=== PATIENT | male | born 1950 | race Hispanic/Latino ===

== ENCOUNTER 2022-05-22 07:17 | Observation (INO) | payer MEDICAID, MEDICARE, OTHER ==
[2022-05-20 12:43] LABS: BASOPHILS % (AUTO) 0.6 % (0.0-5.0); EOSINOPHILS % (AUTO) 5.8 % (0.0-8.0); HEMATOCRIT 43.4 % (42-54); LYMPHOCYTES % (AUTO) 24.9 % (21.0-51.0); MEAN CORPUSCULAR HEMOGLOBIN 28.8 pg (27.0-33.0); MEAN CORPUSCULAR HGB CONC 32.3 g/dL (32.0-36.0); MEAN CORPUSCULAR VOLUME 89.3 fL (79-99); MONOCYTES % (AUTO) 6.4 % (3.0-13.0); NEUTROPHILS % (AUTO) 61.9 % (40.0-77.0); PLATELET COUNT (AUTO) 282 K/uL (130-400); RED BLOOD CELL COUNT(AUTO) 4.86 MIL/uL (4.50-6.20); RED CELL DISTRIBUTION WIDTH 13.6 % (11.0-15.5); WHITE BLOOD COUNT (AUTO) 11.7 K/uL (4.8-10.8)
[2022-05-20 12:53] LABS: APPEARANCE,URINE CLEAR (CLEAR); BILIRUBIN,URINE NEGATIVE (NEGATIVE); COLOR,URINE LIGHT-YELLOW (YELLOW); GLUCOSE, URINE (UA) >=1000 mg/dL (NEGATIVE); KETONES,URINE NEGATIVE (NEGATIVE); LEUKOCYTE ESTERASE ,URINE NEGATIVE Leu/uL (NEGATIVE); NITRATE,URINE NEGATIVE (NEGATIVE); OCCULT BLOOD,URINE NEGATIVE (NEGATIVE); PROTEIN,URINE NEGATIVE (NEGATIVE); UROBILINOGEN,URINE 0.2 mg/dL (0.2-1.0)
[2022-05-20 12:56] LABS: CREATININE 1.1 mg/dL (0.5-1.5); POTASSIUM 4.7 mmol/L (3.5-5.1)
[2022-05-20 13:01] LABS: BACTERIA,URINE RARE /HPF (None Seen); MUCUS,URINE RARE LPF (None Seen); SQUAMOUS EPITHELIAL CELL,UR RARE /HPF (0-2)
[2022-05-20 13:02] LABS: B-TYPE NATRIURETIC PEPTIDE 29 pg/mL (0-100)
[2022-05-20 13:11] VITALS: BP 140/64
[2022-05-20 13:16] LABS: INR 0.93 (0.85-1.15); PROTHROMBIN TIME 9.6 SEC (9.6-11.6)
[2022-05-20 13:17] LABS: PARTIAL THROMBOPLASTIN TIME 24.9 SEC (26.3-35.5)
[2022-05-22] VITALS (15 sets, daily range): BP systolic 92–144; BP diastolic 50–72
[~2022-05-22] VITALS: Ht 165.1 cm; Wt 92.6 kg
[~2022-05-22 07:17] MED LIST: AEC81 PO; ASCO500C18 PO; CLOP75TA32 PO; DAPA10TA PO; ERGO500093 PO; EVOL140S2 SQ; GARL1000 PO; INSLAN SQ; ISOS30TA92 PO; LOSARTAN PO; METF-446 PO; METO25TA6 PO; OMEGA 3 PO; OZEMPIC SQ; RANO500T6 PO; SIMV-46 PO; VITAMIN B12 PO; ZINC220T4 PO
[2022-05-22] MEDS ORDERED: 0.9%NACL 1000ML 1,000 ML IV ONE (08:00)
[2022-05-22 08:01] LABS: BASOPHILS % (AUTO) 0.5 % (0.0-5.0); EOSINOPHILS % (AUTO) 5.7 % (0.0-8.0); HEMATOCRIT 43.6 % (42-54); LYMPHOCYTES % (AUTO) 22.4 % (21.0-51.0); MEAN CORPUSCULAR HEMOGLOBIN 28.9 pg (27.0-33.0); MEAN CORPUSCULAR HGB CONC 32.3 g/dL (32.0-36.0); MEAN CORPUSCULAR VOLUME 89.3 fL (79-99); MONOCYTES % (AUTO) 6.5 % (3.0-13.0); NEUTROPHILS % (AUTO) 64.5 % (40.0-77.0); PLATELET COUNT (AUTO) 254 K/uL (130-400); RED BLOOD CELL COUNT(AUTO) 4.88 MIL/uL (4.50-6.20); RED CELL DISTRIBUTION WIDTH 13.5 % (11.0-15.5); WHITE BLOOD COUNT (AUTO) 9.7 K/uL (4.8-10.8)
[2022-05-22] MEDS ORDERED: IOHEXOL-350 50ML VIAL IV ONE (10:52)
[2022-05-22] MEDS ORDERED: FENTANYL CITRATE PF 50 MCG/1 ML 2ML VIAL ONE (10:52)
[2022-05-22] MEDS ORDERED: IOHEXOL-350 75 ML VIAL IV ONE ×2 (10:52→12:16)
[2022-05-22] MEDS ORDERED: LIDOCAINE HCL 400MG/20ML VIAL ONE (10:52)
[2022-05-22] MEDS ORDERED: MIDAZOLAM HCL 1 MG/ML 2ML VIAL ONE (10:52)
[2022-05-22] MEDS ORDERED: HEPARIN 10,000 UNIT/10ML (1,000 UNIT/ML) VIAL ONE (10:53)
[2022-05-22] MEDS ORDERED: VERAPAMIL HCL 2.5 MG/ML VIAL ONE (10:53)
[2022-05-22] MEDS ORDERED: NITROGLYCERIN 50MG VIAL ONE (10:53)
[2022-05-22] MEDS ORDERED: ASPIRIN 325MG EC TAB PO ONE (12:33)
[2022-05-22] MEDS ORDERED: DEXTROSE 50%-WATER 50 ML DISP.SYRIN IV PRN (13:00)
[2022-05-22] MEDS ORDERED: 0.9%NACL 1000ML 1,000 ML IV SCH (13:00)
[2022-05-22] MEDS ORDERED: OZEMPIC SQ SCH (13:30)
[2022-05-22] MEDS ORDERED: DiphenhydrAMINE HCL 50 MG/ML VIAL IV PRN (15:30)
[2022-05-22] MEDS ORDERED: LIDOCAINE HCL-MPF 1% 2ML VIAL IV PRN (15:30)
[2022-05-22] MEDS ORDERED: KCL 20 MEQ ERTAB PO PRN (15:30)
[2022-05-22] MEDS ORDERED: POTASSIUM CHLORIDE 10% ELIXIR 20 MEQ/15 ML UDCUP PO PRN (15:30)
[2022-05-22] MEDS ORDERED: LACTULOSE 20 GM/30 ML UDCUP PO PRN (15:30)
[2022-05-22] MEDS ORDERED: ONDANSETRON 4MG INJ IV PRN (15:30)
[2022-05-22] MEDS ORDERED: POTASSIUM CHLORIDE 20MEQ/100ML 100 ML IV PRN (15:30)
[2022-05-22] MEDS ORDERED: MAG/ALUM/SIMETH 30 ML UDCUP PO PRN (15:30)
[2022-05-22] MEDS ORDERED: MAGNESIUM 2GM PREMIX 50ML 50 ML IV PRN (15:30)
[2022-05-22] MEDS ORDERED: ACETAMINOPHEN 325 MG TAB PO PRN ×2 (15:30)
[2022-05-22] MEDS ORDERED: NITROGLYCERIN 0.4 MG SL TAB SL PRN (15:30)
[2022-05-22] MEDS ORDERED: GUAIFENESIN-DM 200/20 MG 10 ML PO PRN (15:30)
[2022-05-22] MEDS ORDERED: DIPHENHYDRAMINE HCL 25 MG CAPSULE PO PRN (15:30)
[2022-05-22] MEDS: LOSARTAN 25 MG TABLET PO SCH (15:57)
[2022-05-22] MEDS: INSULIN HUMULIN R 100 UNIT/ML 3ML SQ SCH ×2 (16:30→20:53)
[2022-05-22] MEDS ORDERED: METFORMIN HCL 500 MG TABLET PO SCH (17:00)
[2022-05-22] MEDS: FAMOTIDINE 20MG TAB PO SCH (20:17)
[2022-05-22] MEDS: RANOLAZINE 500 MG TAB.SR.12H PO SCH (20:17)
[2022-05-22] MEDS: FAMOTIDINE 20MG VIAL IV SCH (20:21)
[2022-05-22] MEDS ORDERED: INSULIN GLARGINE 100 UNITS/ML 10 ML VIAL SQ SCH (21:00)
[2022-05-22] MEDS ORDERED: SIMVASTATIN 20 MG TABLET PO SCH (21:00)
[2022-05-22] MEDS ORDERED: NON-FORMULARY MEDICATION 1 EACH (Metformin HCl 1,000 MG) PO SCH (21:00)
[2022-05-22] MEDS ORDERED: NON-FORMULARY MEDICATION 1 EACH (Simvastatin 40 MG) PO SCH (21:00)
[2022-05-23 00:15] VITALS: BP 110/67
[2022-05-23 03:15] VITALS: BP 115/72
[2022-05-23 03:52] LABS: HEMATOCRIT 38.6 % (42-54); MEAN CORPUSCULAR HGB CONC 32.6 g/dL (32.0-36.0); MEAN CORPUSCULAR VOLUME 88.9 fL (79-99); RED BLOOD CELL COUNT(AUTO) 4.34 MIL/uL (4.50-6.20); RED CELL DISTRIBUTION WIDTH 13.9 % (11.0-15.5); WHITE BLOOD COUNT (AUTO) 11.2 K/uL (4.8-10.8)
[2022-05-23 04:13] LABS: CREATININE 1.2 mg/dL (0.5-1.5); POTASSIUM 3.9 mmol/L (3.5-5.1)
[2022-05-23] MEDS: INSULIN HUMULIN R 100 UNIT/ML 3ML SQ SCH ×2 (06:18→11:30)
[2022-05-23] MEDS: METOPROLOL TARTRATE 25 MG TAB PO SCH ×2 (06:18→08:31)
[2022-05-23 08:00] VITALS: BP 115/63
[2022-05-23] MEDS: LOSARTAN 25 MG TABLET PO SCH (08:32)
[2022-05-23] MEDS: RANOLAZINE 500 MG TAB.SR.12H PO SCH (08:33)
[2022-05-23] MEDS: FAMOTIDINE 20MG TAB PO SCH (08:33)
[2022-05-23] MEDS: FAMOTIDINE 20MG VIAL IV SCH (08:34)
[2022-05-23] MEDS ORDERED: ISOSORBIDE MONO 30MG SR TAB PO SCH (09:00)
[2022-05-23] MEDS ORDERED: GARLIC 1000 MG PO SCH (09:00)
[2022-05-23] MEDS ORDERED: CYANOCOBALAMIN (VITAMIN B-12) 1,000 MCG TABLET PO SCH (09:00)
[2022-05-23] MEDS ORDERED: ASPIRIN 81 MG EC TAB PO SCH (09:00)
[2022-05-23] MEDS ORDERED: ZINC SULFATE 220 CAPSULE PO SCH (09:00)
[2022-05-23] MEDS ORDERED: FISH OIL 1000 MG/CAP PO SCH (09:00)
[2022-05-23] MEDS ORDERED: ASPIRIN 81MG CHEW TAB PO SCH (09:00)
[2022-05-23] MEDS ORDERED: CLOPIDOGREL 75MG TAB PO SCH (09:00)
[2022-05-23] MEDS ORDERED: DAPAGLIFLOZIN PROPANEDIOL 10 MG PO SCH (09:00)
[2022-05-23] MEDS ORDERED: ASCORBIC ACID 500 MG TAB PO SCH (09:00)
[2022-05-23 11:00] VITALS: BP 116/42
[2022-05-23] MEDS ORDERED: NITR0.4T50 SL (13:47)
[2022-06-05] MEDS ORDERED: EVOLOCUMAB 140 MG SQ SCH (09:00)
== END 2022-05-23 15:15 | disposition home or self-care (01) ==
LOC: DAH 07:17 → 2DH 07:18
PROVIDERS: ADMIT Internal Medicine; ATTEND Internal Medicine
DX: I25.10 Atherosclerotic heart disease of native coronary artery without angina pectoris (principal); I10 Essential (primary) hypertension; E11.59 Type 2 diabetes mellitus with other circulatory complications; E11.43 Type 2 diabetes mellitus with diabetic autonomic (poly)neuropathy; E78.00 Pure hypercholesterolemia, unspecified; F17.210 Nicotine dependence, cigarettes, uncomplicated; Z79.02 Long term (current) use of antithrombotics/antiplatelets; Z79.82 Long term (current) use of aspirin; Z79.899 Other long term (current) drug therapy; Z79.84 Long term (current) use of oral hypoglycemic drugs; Z79.4 Long term (current) use of insulin; Z98.890 Other specified postprocedural states; Z98.61 Coronary angioplasty status; Z71.3 Dietary counseling and surveillance; Z71.82 Exercise counseling; Z68.34 Body mass index [BMI] 34.0-34.9, adult
CPT/HCPCS: 80048 ×2; 83880; 85025 ×2; 85610; 85730; 81001; 36415 ×3; 71045; 93005; 93458; 93571; 85347; 82948 ×6; 85027; C1887 ×3; C1894 ×2; C1760; C1769; C1874; C1725; G0378 ×26; J3010; J3490 ×2; J7030; J1644 ×2; J2250; Q9967 ×3; J1815; A4215; A4223 ×3; A4222; A4221; A4663; A4216; A4606; C9600; 99156; 99157

== ENCOUNTER 2024-07-10 18:58 | Observation (INO) | payer MEDICARE ==
[~2024-07-10] VITALS: Ht 165.1 cm; Wt 93.9 kg
[~2024-07-10 18:58] MED LIST changes: +ACET-66 PO; -AEC81 PO; +ASCO-360 PO; -ASCO500C18 PO; +CHOL2000 PO; +CYAN50009 PO; +EZET-61 PO; +FISH1CAP50 PO; +FLAX100020 PO; -GARL1000 PO; +GARL10002 PO; -INSLAN SQ; -ISOS30TA92 PO; +LOSA1TAB42 PO; -LOSARTAN PO; -OMEGA 3 PO; -OZEMPIC SQ; -RANO500T6 PO; +SEMA2PEN SQ; -SIMV-46 PO; -VITAMIN B12 PO; -ZINC220T4 PO; +ZINC50TA64 PO
--- NOTE | 2024-07-10 19:10 | EKG ---
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
[2024-07-10] MEDS: acetaMINOPHEN 500 MG TABLET PO ONE (19:28)
[2024-07-10 19:33] LABS: BASOPHILS # (AUTO) 0.04 K/uL (0.00-0.20); BASOPHILS % (AUTO) 0.5 % (0.0-5.0); EOSINOPHILS # (AUTO) 0.41 K/uL (0.00-0.70); HEMATOCRIT 41.4 % (42-54); IMMATURE GRANULOCYTE ABSOLUTE 0.02 K/uL (0-1); LYMPHOCYTES # (AUTO) 1.9 K/uL (1.0-4.8); LYMPHOCYTES % (AUTO) 23.1 % (21.0-51.0); MEAN CORPUSCULAR HEMOGLOBIN 29.8 pg (27.0-33.0); MEAN CORPUSCULAR HGB CONC 32.9 g/dL (32.0-36.0); MEAN CORPUSCULAR VOLUME 90.6 fL (79-99); MONOCYTES # (AUTO) 0.5 K/uL (0.1-1.0); MONOCYTES % (AUTO) 6.6 % (3.0-13.0); NEUTROPHILS # (AUTO) 5.3 K/uL (1.8-7.7); NEUTROPHILS % (AUTO) 64.6 % (40.0-77.0); PLATELET COUNT (AUTO) 229 K/uL (130-400); RED BLOOD CELL COUNT(AUTO) 4.57 MIL/uL (4.50-6.20); RED CELL DISTRIBUTION WIDTH 13.8 % (11.0-15.5); WHITE BLOOD COUNT (AUTO) 8.2 K/uL (4.8-10.8)
[2024-07-10 19:41] LABS: POTASSIUM 3.9 mmol/L (3.5-5.1)
[2024-07-10 19:50] LABS: MAGNESIUM 2.4 mg/dL (1.80-2.40)
[2024-07-10 20:03] LABS: B-TYPE NATRIURETIC PEPTIDE 49 pg/mL (0-100)
[2024-07-10] MEDS: ASPIRIN 325MG TAB PO ONE (20:05)
--- NOTE | 2024-07-10 20:09 | HMCIMG ---
Exam Type: SHOULDER COMP 2+VWS LT Clinical Information: shoulder pain Comparison: None FINDINGS: The acromioclavicular joint shows hypertrophy, which may impinge upon the rotator cuff tendon. The glenohumeral joint is preserved. Visualized portions of the humerus, the scapula, and the clavicle as well as the upper ribcage are unremarkable. No pulmonary pathology is noted in the visualized portions of the upper lobe. The soft tissues are preserved. There are no other gross abnormalities. IMPRESSION: Degenerative changes of the acromioclavicular joint with hypertrophy.
--- NOTE | 2024-07-10 20:11 | HMCIMG ---
Exam Type: SHOULDER COMP 2+VWS RT Clinical Information: shoulder pain Comparison: None FINDINGS: The acromioclavicular joint shows hypertrophy, which may impinge upon the rotator cuff tendon. The glenohumeral joint is preserved. Visualized portions of the humerus, the scapula, and the clavicle as well as the upper ribcage are unremarkable. No pulmonary pathology is noted in the visualized portions of the upper lobe. The soft tissues are preserved. There are no other gross abnormalities. IMPRESSION: Degenerative changes of the acromioclavicular joint with hypertrophy.
--- NOTE | 2024-07-10 20:13 | HMCIMG ---
Exam Type: CHEST 1VW Clinical Information: shoulder pain Comparison: None Findings: The lungs are clear of infiltrates. The heart is normal in size. The bony and soft tissue structures of the chest are unremarkable. Impression: Clear lungs.
--- NOTE | 2024-07-10 22:34 | ERN ---
ED Note History of Present Illness Stated Complaint: BILATERAL SHOULDER PAIN Chief Complaint: Shoulder Injury/Pain Time Seen by MD: 19:00 Time Seen by Midlevel: 19:00 Dictation: The patient is a 84-year-old male with a history of a CAD with multiple cardia stent placement, diabetes, neck surgery who presents to the emergency department with complaints of bilateral shoulder pain associated with diaphoresis onset an hour prior to his arrival. Patient reports he usually has right shoulder pain due to his arthritis but the left shoulder pain is new. Patient denies any injuries, denies any recent falls. Patient denies any chest pain or shortness of breath. Allergies: Coded Allergies: Iodinated Contrast Media (Unverified Allergy, Unknown, SWELLING , 05/22/22) No Known Drug Allergies (Unverified Allergy, Unknown, 05/20/22) Home Meds Active Scripts Acetaminophen (Tylenol) 500 Mg Tab, 1 TAB PO Q6HPRN PRN for pain or fever for 5 Days, #20 TAB 0 Refills Prov:TJ CABRERA MD 12/15/23 Reported Medications Dapagliflozin Propanediol (Farxiga) 10 Mg Tablet, 1 TAB PO DAILY for 30 Days, #30 TAB 0 Refills 12/06/23 Metoprolol Tartrate (Metoprolol Tartrate) 25 Mg Tablet, 25 MG PO DAILY, TAB 12/06/23 Losartan/Hydrochlorothiazide (Losartan-Hctz 100-12.5 mg Tab) 100 Mg-12.5 Mg Tablet, 1 TAB PO DAILY for 30 Days, #30 TAB 0 Refills 12/06/23 Ascorbate Calcium (Vitamin C) 500 Mg Tablet, 500 MG PO DAILY, TAB 07/28/23 Flaxseed Oil (Flaxseed Oil) 1,000 Mg Capsule, 1000 MG PO DAILY, CAP 07/28/23 Garlic (Garlic) 1,000 Mg Capsule, 1000 MG PO DAILY, CAP 07/28/23 Zinc Amino Acid Chelate (Zinc) 50 Mg Tablet, 50 MG PO DAILY, TAB 07/28/23 Cyanocobalamin (Vitamin B-12) (Vitamin B12) 5,000 Mcg Tab.rapdis, 5000 MCG PO DAILY, TAB 07/28/23 [place]-3 Fatty Acids/Fish Oil ([place] 3 Fish Oil Softgel) 684 Mg-1,200 Mg Capsule.dr, 1 EACH PO DAILY, CAP 07/28/23 Cholecalciferol (Vitamin D3) (Vitamin D3) 50 Mcg (2000 Unit) Capsule, 50 MCG PO DAILY, CAP 07/28/23 Semaglutide (Ozempic) 2 Mg/0.75 Ml (8 Mg/3 Ml) Pen.injctr, 2 MG SQ QWEEK 07/28/23 Evolocumab (Repatha Syringe) 140 Mg/Ml Syringe, 140 MG SQ EVERY 2 WEEKS, SYRINGE 07/28/23 Ergocalciferol (Vitamin D2) (Vitamin D2) 1,250 Mcg (31688 Unit) Capsule, 1250 MCG PO QWEEK, CAP 07/28/23 Clopidogrel Bisulfate (Clopidogrel) 75 Mg Tablet, 75 MG PO DAILY, TAB 07/28/23 Ezetimibe/Simvastatin (Ezetimibe-Simvastatin 10-40 mg) 10 Mg-40 Mg Tablet, 1 EACH PO DAILY, TAB 07/28/23 Metformin HCl (Metformin HCl) 1,000 Mg Tablet, 1000 MG PO BID, TAB 07/28/23 Dapagliflozin Propanediol (Farxiga) 10 Mg Tablet, 10 MG PO DAILY, TAB 07/28/23 Past Medical History Past Medical History: Diabetes-Type II, Hypertension Surgical History: Other Surgical History Other: STENTSX6, CERVICAL SX RN Note Reviewed/Agreed w/PFSH: Yes Review of System Dictation Constitutional: Negative for fever,chills, and weight loss Eyes: Negative for injury, pain,redness, and discharge ENT: Negative for injury,pain or swelling Cardiovascular: Negative for chest pain, palpitations, and edema Respiratory: Negative for shortness of breath, cough, and wheezing, Abdomen/GI: Negative for abdominal pain, nausea, vomiting, diarrhea, and constipation Back: Negative for injury and pain : Negative for injury, bleeding and discharge MS/Extremity: Negative for injury and deformity positive for bilateral shoulder pain Skin: Negative for rash, and discoloration Neuro: Negative for headache, weakness, numbness, tingling, and seizure Psych: Negative for suicide ideation, homicidal ideation, and hallucinations Initial Vital Sign VS Vital Signs Date Time Temp Pulse Resp B/P (MAP) Pulse Ox O2 Delivery O2 Flow Rate FiO2 07/10/24 18:59 99.0 58 16 169/71 98 Room Air* 0 21 Physical Exam Dictation Vital Signs reviewed General Appearance: Alert, oriented x 3, no acute distress, well developed, nourished. Head and Face: non-traumatic. Eyes: PERRL, pink conjunctivas, eyelid no trauma, anterior chamber with arcus senilis. Ears: Pinnas intact and no signs of trauma or erythema ear canals clear and no discharge TM no erythema Nose: No discharge, no bleeding. Oropharynx: Mouth normal, tongue pink. pharynx clear,no erythema, tonsils no exudates, no abscesses noted, mucous membrane moist Neck: Supple, non-tender, no thyromegaly, no masses, no JVD, no bruits Breast:Deferred Chest:No tenderness, no crepitus, no paradoxical movement, no retractions Lungs:Clear, well-ventilated, symmetric, no rales, no wheezing, no rhonchi, no stridor, good breath sounds bilaterally Heart: Regular rate, regular rhythm, no murmur, no gallops Vascular: no peripheral edema, radial pulses 3+ bilaterally Abdomen: Soft, positive bowel sounds, nondistended, no guarding, nontender, no rebound, no masses no hepatomegaly, no splenomegaly, no Padilla's sign, no hernias. Rectal: Deferred Genital: Deferred Neurological: Normal speech, motor function intact, sensory function intact Musculoskeletal: Neck nontender, full range of motion, back nontender, full range of motion, Extremities: nontender, full range of motion , no tenderness to palpation to shoulders Skin: Color pink, dry, no turgor, no rash, no lacerations, no abrasions, no c ontusions. Lymphatic: Deferred Results (Laboratory/Radiology) Laboratory/Radiology Laboratory Tests Test 07/10/24 19:28 07/10/24 20:32 White Blood Count 8.2 K/uL (4.8-10.8) Red Blood Count 4.57 MIL/uL (4.50-6.20) Hemoglobin 13.6 g/dL (14.0-18.0) L Hematocrit 41.4 % (42-54) L Mean Corpuscular Volume 90.6 fL (79-99) Mean Corpuscular Hemoglobin 29.8 pg (27.0-33.0) Mean Corpuscular Hemoglobin Concent 32.9 g/dL (32.0-36.0) Red Cell Distribution Width 13.8 % (11.0-15.5) Platelet Count 229 K/uL (130-400) Mean Platelet Volume 9.6 fL (7.5-10.5) Immature Granulocyte % (Auto) 0.2 % (0-1) Neutrophils (%) (Auto) 64.6 % (40.0-77.0) Lymphocytes (%) (Auto) 23.1 % (21.0-51.0) Monocytes (%) (Auto) 6.6 % (3.0-13.0) Eosinophils (%) (Auto) 5.0 % (0.0-8.0) Basophils (%) (Auto) 0.5 % (0.0-5.0) Neutrophils # (Auto) 5.3 K/uL (1.8-7.7) Lymphocytes # (Auto) 1.9 K/uL (1.0-4.8) Monocytes # (Auto) 0.5 K/uL (0.1-1.0) Eosinophils # (Auto) 0.41 K/uL (0.00-0.70) Basophils # (Auto) 0.04 K/uL (0.00-0.20) Absolute Immature Granulocyte (auto 0.02 K/uL (0-1) Nucleated Red Blood Cells 0.0 % (0.0-0.19) Sodium Level 144 mmol/L (136-145) Potassium Level 3.9 mmol/L (3.5-5.1) Chloride Level 106 mmol/L (101-111) Carbon Dioxide Level 32 mmol/L (21-32) Blood Urea Nitrogen 18 mg/dL (7-18) Creatinine 1.0 mg/dL (0.5-1.3) Glomerular Filtration Rate Calc 78 mL/min (>90) Random Glucose 197 mg/dL (70-105) H Total Calcium 8.6 mg/dL (8.5-10.1) Magnesium Level 2.40 mg/dL (1.80-2.40) Total Creatine Kinase 123 U/L (21-232) Troponin I High Sensitivity 80 ng/L (4-75) *H 73 ng/L (4-75) B-Type Natriuretic Peptide 49 pg/mL (0-100) REASON: shoulder pain ORDERING PHYSICIAN: JILLIAN MCBRIDE PROCEDURE: SHOL 2V LT - SHOULDER COMP 2+VWS LT Exam Type: SHOULDER COMP 2+VWS LT Clinical Information: shoulder pain Comparison: None FINDINGS: The acromioclavicular joint shows hypertrophy, which may impinge upon the rotator cuff tendon. The glenohumeral joint is preserved. Visualized portions of the humerus, the scapula, and the clavicle as well as the upper ribcage are unremarkable. No pulmonary pathology is noted in the visualized portions of the upper lobe. The soft tissues are preserved. There are no other gross abnormalities. IMPRESSION: Degenerative changes of the acromioclavicular joint with hypertrophy. REASON: shoulder pain ORDERING PHYSICIAN: JILLIAN MCBRIDE REAL ESTATE PHOTOGRAPHER PROCEDURE: CXR1VW - CHEST 1VW Exam Type: CHEST 1VW Clinical Information: shoulder pain Comparison: None Findings: The lungs are clear of infiltrates. The heart is normal in size. The bony and soft tissue structures of the chest are unremarkable. Impression: Clear lungs. REASON: shoulder pain ORDERING PHYSICIAN: JILLIAN MCBRIDE REAL ESTATE PHOTOGRAPHER PROCEDURE: SHOL 2V RT - SHOULDER COMP 2+VWS RT Exam Type: SHOULDER COMP 2+VWS RT Clinical Information: shoulder pain Comparison: None FINDINGS: The acromioclavicular joint shows hypertrophy, which may impinge upon the rotator cuff tendon. The glenohumeral joint is preserved. Visualized portions of the humerus, the scapula, and the clavicle as well as the upper ribcage are unremarkable. No pulmonary pathology is noted in the visualized portions of the upper lobe. The soft tissues are preserved. There are no other gross abnormalities. IMPRESSION: Degenerative changes of the acromioclavicular joint with hypertrophy. Labs Reviewed?: Yes EKG: (+) rhythm (Sinus rhythm) EKG Comment: Date:07/10/2024 Time:1906 Ventricular rate:57 KS interval:200 QRS duration:94 QT/QTc:400 EKG interpretation: Sinus rhythm Reviewed by ED Attending no STEMI ED Course ED Course Orders Procedure Category Date Status Time 12 Lead Ekg Tracing- EKG 07/10/24 Complete Technical 19:02 Cbc With Differential LAB 07/10/24 Complete 19:16 B-Type Natriuretic LAB 07/10/24 Complete Peptide 19:16 Chest 1vw RAD 07/10/24 Resulted 19:16 Acetaminophen 500mg PHA 07/10/24 Complete Tab (Tylenol 500mg T 19:30 Magnesium LAB 07/10/24 Complete 19:16 Creatine Kinase, Total LAB 07/10/24 Complete 19:16 Troponin I High LAB 07/10/24 Complete Sensitivity 19:16 Basic Metabolic Panel LAB 07/10/24 Complete 19:16 Shoulder Comp 2+Vws Lt RAD 07/10/24 Resulted 19:16 Shoulder Comp 2+Vws Rt RAD 07/10/24 Resulted 19:16 Aspirin 325mg Tab PHA 07/10/24 Complete (Aspirin 325mg Tab) 20:00 Troponin I High LAB 07/10/24 Complete Sensitivity 20:00 Admit Orders ADM 07/10/24 Transmitted 21:52 Edm Admit Bridge Order ADM 07/10/24 Transmitted 21:52 Current Medications Medications (Trade) Dose Ordered Sig/Svetlana Route PRN Reason Start Time Stop Time Status Last Admin Dose Admin Acetaminophen (TYLenol 500MG TAB) 1,000 mg ONCE ONCE PO 07/10/24 19:30 07/10/24 19:31 DC 07/10/24 19:28 Aspirin (Aspirin 325mg Tab) 325 mg ONCE ONCE PO 07/10/24 20:00 07/10/24 20:02 DC 07/10/24 20:05 Vital Signs Date Time Temp Pulse Resp B/P (MAP) Pulse Ox O2 Delivery O2 Flow Rate FiO2 07/10/24 18:59 99.0 58 16 169/71 98 0 07/10/24 18:59 99.0 58 16 169/71 98 Room Air* 0 21 Medical Decision Making MDM MDM: The patient is a 84-year-old male with a history of a CAD with multiple cardia stent placement, diabetes, neck surgery who presents to the emergency department with complaints of bilateral shoulder pain associated with diaphoresis onset an hour prior to his arrival. Patient reports he usually has right shoulder pain due to his arthritis but the left shoulder pain is new. Patient denies any injuries, denies any recent falls. Patient denies any chest pain or shortness of breath. CBC showed no leukocytosis, mild normocytic anemia, chemistry showed no electrolyte imbalance, NSR troponin of 80, repeat troponin of 73, chest x-ray clear. Shoulder x-ray showed degenerative changes. Given the patient's symptoms extensive history of CAD who admitted for further evaluation and management. Differential diagnosis: ACS, arthritis, shoulder dislocation Comorbidities: Diabetes, CAD, arthritis Tests considered and not ordered secondary to shared decision making include: none Previous outside records reviewed: none Risk of complication and/or morbidity or mortality of patient management: The patient meets criteria for admission. Need for emergency major/minor surgery: No There are no social concerns with this patient. I independently interpreted the tests I ordered (labs, urinalysis, etc.). I discussed the case with the hospitalist for admission. [employer] who accepts ad mission I discussed the case with the following specialists: none. Historian: pateint. I independently interpreted imaging studies and EKGs that I ordered (US, CT, XR, EKG, etc.). External chart review: none. Medical management and examination interpretation discussions were had by me with other qualified healthcare professionals as indicated for the patient's care. DX & DISP Disposition: Inpatient Decision to Admit Date: July 10, 2024 Decision to Admit Time: 21:52 Departure Impression: Primary Impression: Elevated troponin Additional Impression: Shoulder pain, bilateral Condition: Stable Referrals: IVONNE MON MD (PCP) I have reviewed the case, and I agree with, Diagnosis and Plan JILLIAN MCBRIDE REAL ESTATE PHOTOGRAPHER July 10, 2024 22:34
--- NOTE | 2024-07-10 22:37 | HP ---
[facility] Date of Service: July 10, 2024 Time of Service: 22:36 PCP: Allan Salazar HISTORY OF PRESENT ILLNESS: This is a 74 year old male past medical history of diabetes type 2, hypertension, hyperlipidemia, coronary artery disease with cardiac stent x6 two years ago who presents to the ED for complaints of bilateral shoulder pain associated with diaphoresis which started 1 hour prior to ER arrival and patient is concerned that he might be having a heart attack so he decided to come to the ED for evaluation.Patient states he was just resting and watching TV at home when it happened.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 Seen and examined patient in the ER awake,alert and coherent,appears comfortable.Patient denies fever,chills,nausea,vomiting,palpitation, chest pain, abdominal pain and shortness of breath. Latest vital signs temperature 99, heart rate 58, blood pressure 169/71 saturation 98% on room air. Labs: Hemoglo bin 13, hematocrit 41 platelet count 229. Glucose 197, initial troponin 80 to 73 BNP 49 the rest of the chemistries normal. Right shoulder x-ray result revealed degenerative changes of the acromioclavicular joint with hypertrophy. Left shoulder x-ray result revealed degenerative changes of the acromioclavicular joint with hypertrophy. Chest x-ray result is normal. While in the ED patient received Tylenol 1000 mg p.o. and aspirin 325 mg p.o. we will admit patient for further medical management. REVIEW OF SYSTEMS CONSTITUTIONAL: Denies fevers, chills, or night sweats. No unintentional weight loss reported. NEUROLOGICAL: Denies headache, amaurosis fugax, motor weakness, sensory deficit, vertigo/spinning sensation, gait abnormalities, or tremors. ENT: No hearing loss, otalgia, otorrhea, rhinitis, rhinorrhea, hoarseness, or sore throat. CARDIOVASCULAR: Denies any exertional angina, dyspnea on exertion, orthopnea, paroxysmal nocturnal dyspnea, palpitations, life-threatening arrhythmias, claudication. PULMONARY: Denies any shortness of breath, cough, phlegm/sputum, hemoptysis, pleuritic chest pain. SLEEP: Denies morning headaches, daytime somnolence or napping. Denies difficulty falling asleep, staying asleep, waking from sleep. Denies knowledge of snoring. GASTROINTESTINAL: Denies any type of dysphagia to either liquids or solids. Denies nausea, vomiting, pyrosis, early satiety, abdominal pain, diarrhea, constipation, or changes in stool consistency or caliber. Denies coffee-ground emesis, hematemesis, hematochezia, or melanotic stools. GENITOURINARY: Denies frequency, urgency, nocturia, hematuria or incontinence (Storage/Irritative symptoms.) Low urinary stream, straining to void, urinary intermittency or hesitancy, splitting of the voiding stream, terminal dribbling. ENDOCRINOLOGIC: Denies polyuria, polydipsia, polyphagia or heat/cold intolerances. HEMATOLOGIC: Denies thrombophilia/previous clots, or coagulopathy/bleeding disorders. ONCOLOGIC: Denies personal history of malignancy. DERMATOLOGIC: Denies rashes or pruritus. PSYCHIATRIC: Denies any suicidal or homicidal ideation. Denies hallucinations. PAST MEDICAL HISTORY: [Diabetes type 2, hypertension, hyperlipidemia and coronary artery disease with cardiac stent x6 ] PAST SURGICAL HISTORY: [ Cardiac stent x6, left knee surgery and neck surgery ] PAST SOCIAL HISTORY: [ Patient lives with Kathy Villarreal. Patient denies alcohol tobacco and recreational drug use] FAMILY HISTORY: [Hypertension, diabetes, cardiovascular disease, cancer and asthma] Coded Allergies: Iodinated Contrast Media (Unverified Allergy, Unknown, SWELLING , 05/22/22) No Known Drug Allergies (Unverified Allergy, Unknown, 05/20/22) PHYSICAL EXAM GENERAL APPEARANCE: The patient is awake, alert, and oriented, in no acute cardiopulmonary distress. NEUROLOGICAL: Cranial nerves II-XII grossly intact. Motor is 5/5 in bilateral upper and lower extremities proximal to distal. No sensory deficits. HEENT: Face is symmetric. Pupils are equal and reactive. Extraocular movements are intact. NECK: Supple. No JVD. No thyromegaly. No submental, submandibular, pre- /postauricular, occipital or supraclavicular lymphadenopathy. CHEST: Normal chest expansion. No Telemetry. LUNGS: Absence of any rales, rhonchi or any wheezing. CARDIOVASCULAR: Regular. S1 and S2 normal. No appreciable rubs, murmurs or gallops. ABDOMEN: Soft, nontender, and nondistended. There is no rebound, voluntary guarding, or rigidity. : Deferred. No Choe. EXTREMITIES: Non-edematous and not cyanotic. No clubbing. Good capillary refill. SKIN: No skin breakdown. Vital Sign (Last 24 Hours) 07/10/24 18:59 Temp 99.0 Pulse 58 Resp 16 B/P (MAP) 169/71 Pulse Ox 98 O2 Delivery Room Air* O2 Flow Rate 0 FiO2 21 LABS: Laboratory: Test 07/10/24 20:32 07/10/24 19:28 Range/Units Troponin I High Sensitivity 73 4-75 ng/L White Blood Count 8.2 4.8-10.8 K/uL Red Blood Count 4.57 4.50-6.20 MIL/uL Hemoglobin 13.6 L 14.0-18.0 g/dL Hematocrit 41.4 L 42-54 % Mean Corpuscular Volume 90.6 79-99 fL Mean Corpuscular Hemoglobin 29.8 27.0-33.0 pg Mean Corpuscular Hemoglobin Concent 32.9 32.0-36.0 g/dL Red Cell Distribution Width 13.8 11.0-15.5 % Platelet Count 229 130-400 K/uL Mean Platelet Volume 9.6 7.5-10.5 fL Immature Granulocyte % (Auto) 0.2 0-1 % Neutrophils (%) (Auto) 64.6 40.0-77.0 % Lymphocytes (%) (Auto) 23.1 21.0-51.0 % Monocytes (%) (Auto) 6.6 3.0-13.0 % Eosinophils (%) (Auto) 5.0 0.0-8.0 % Basophils (%) (Auto) 0.5 0.0-5.0 % Neutrophils # (Auto) 5.3 1.8-7.7 K/uL Lymphocytes # (Auto) 1.9 1.0-4.8 K/uL Monocytes # (Auto) 0.5 0.1-1.0 K/uL Eosinophils # (Auto) 0.41 0.00-0.70 K/uL Basophils # (Auto) 0.04 0.00-0.20 K/uL Absolute Immature Granulocyte (auto 0.02 0-1 K/uL Nucleated Red Blood Cells 0.0 0.0-0.19 % Sodium Level 144 136-145 mmol/L Potassium Level 3.9 3.5-5.1 mmol/L Chloride Level 106 101-111 mmol/L Carbon Dioxide Level 32 21-32 mmol/L Blood Urea Nitrogen 18 7-18 mg/dL Creatinine 1.0 0.5-1.3 mg/dL Glomerular Filtration Rate Calc 78 >90 mL/min Random Glucose 197 H 70-105 mg/dL Total Calcium 8.6 8.5-10.1 mg/dL Magnesium Level 2.40 1.80-2.40 mg/dL Total Creatine Kinase 123 21-232 U/L B-Type Natriuretic Peptide 49 0-100 pg/mL DIAGNOSTICS / RADIOLOGY: [ ] ASSESSMENT: Elevated troponin POA Bilateral shoulder pain POA Coronary artery disease with cardiac stent x6 POA Hypertension POA Hyperlipidemia POA Uncontrolled diabetes POA Morbid obesity POA PLAN: We will admit patient in medical telemetry We will start on heart healthy and consistent carb diet We will start on aspirin 81 mg, metoprolol 25 mg daily and Plavix 75 mg daily as per home dose We will start on Famotidine 20 mg bid for GI prophylaxis We will replace electrolytes as needed per protocol We will start on insulin sliding scale AC & HS with hypoglycemia protocol We will add prn medication for fever,pain,cough ,nausea and vomiting We will reconcile home meds once medlist available We will trend troponin q.6 x3 We will seek Cardiology consultation We will request labs in am Further orders to follow depending on above results Case discussed with attending physician and came up with above treatment and plan of care. ADVANCED CARE PLANNING 1. Which of the following were discussed? Hospice Care - No Therapeutic options - Yes Advance Directives - No Other discussions - 2. Discussed with who? Patient and 3. Voluntary nature of this service was explained to the patient? Yes 4. Amount of time spent - ___22____ 5. Reviewed by Physician? (if this service was performed by NPP) Yes Patient seen and examined by me. Agree with note by PERSONALIZED LIVING MANAGER SEE ADDITIONAL ORDERS PER CHART DISCUSSED WITH NURSING STAFF MARIANO CROWP July 10, 2024 22:37
[2024-07-10] MEDS ORDERED: PoTASSium chloRIDE 20MEQ/100ML 100 ML IV PRN (23:30)
[2024-07-10] MEDS ORDERED: MAGNESIUM 2GM PREMIX 50ML 50 ML IV PRN (23:30)
[2024-07-10] MEDS ORDERED: acetaMINOPHEN 325 MG TAB PO PRN (23:30)
[2024-07-10] MEDS ORDERED: DEXTROSE 50%-WATER 50 ML DISP.SYRIN IV PRN (23:30)
[2024-07-10] MEDS ORDERED: NITROGLYCERIN 0.4 MG SL TAB SL PRN (23:30)
[2024-07-10] MEDS ORDERED: PoTASSium chloRIDE 20MEQ ER 20 MEQ ERTAB PO PRN (23:30)
[2024-07-10] MEDS ORDERED: PoTASSium chl 10% ELIXIR 20MEQ 20 MEQ/15 ML UDCUP PO PRN (23:30)
[2024-07-10] MEDS ORDERED: GLUCAGON 1MG KIT 1 MG ML IM PRN (23:30)
[2024-07-11] VITALS (7 sets, daily range): BP systolic 115–150; BP diastolic 57–70; PULSE 48–60; RESP 18–20; TEMP 97.6–98.2; O2SAT 97–98
[2024-07-11] MEDS ORDERED: FLUT15.845 NS (01:54)
[2024-07-11] MEDS ORDERED: ISOS30TA92 PO (02:01)
[2024-07-11] MEDS ORDERED: LATA2.5D14 OU (02:01)
[2024-07-11] MEDS ORDERED: LEVEMIR SQ (02:01)
[2024-07-11] MEDS ORDERED: EVOL140P3 SQ (02:10)
[2024-07-11] MEDS ORDERED: TRAM100C2 PO (02:10)
[2024-07-11] MEDS: INSULIN humuLIN R 100 UNIT/ML 3ML SQ SCH (05:44)
[2024-07-11 05:59] LABS: BASOPHILS # (AUTO) 0.05 K/uL (0.00-0.20); BASOPHILS % (AUTO) 0.7 % (0.0-5.0); EOSINOPHILS # (AUTO) 0.45 K/uL (0.00-0.70); EOSINOPHILS % (AUTO) 6.5 % (0.0-8.0); HEMATOCRIT 37.8 % (42-54); IMMATURE GRANULOCYTE ABSOLUTE 0.02 K/uL (0-1); LYMPHOCYTES # (AUTO) 2.3 K/uL (1.0-4.8); LYMPHOCYTES % (AUTO) 32.6 % (21.0-51.0); MEAN CORPUSCULAR HGB CONC 33.6 g/dL (32.0-36.0); MEAN CORPUSCULAR VOLUME 89.4 fL (79-99); MONOCYTES # (AUTO) 0.6 K/uL (0.1-1.0); MONOCYTES % (AUTO) 7.9 % (3.0-13.0); NEUTROPHILS # (AUTO) 3.6 K/uL (1.8-7.7); PLATELET COUNT (AUTO) 200 K/uL (130-400); RED BLOOD CELL COUNT(AUTO) 4.23 MIL/uL (4.50-6.20); RED CELL DISTRIBUTION WIDTH 13.8 % (11.0-15.5)
[2024-07-11 06:42] LABS: ALBUMIN 2.8 g/dL (3.5-5.0); BILIRUBIN,TOTAL 0.4 mg/dL (0.2-1.0); CREATININE 0.9 mg/dL (0.5-1.3); MAGNESIUM 2.3 mg/dL (1.80-2.40); THYROID STIMULATING HORMONE 1.8 uIU/mL (0.36-3.74)
[2024-07-11 07:04] LABS: HEMOGLOBIN A1C 8.2 % (4.0-6.0)
[2024-07-11 07:56] LABS: ERYTHROCYTE SEDIMENTATION RATE 21 MM/HR (0-20)
[2024-07-11] MEDS: cloPIDOgrel 75MG TAB PO SCH (08:26)
[2024-07-11] MEDS: ASPIRIN 81 MG EC TAB PO SCH (08:26)
[2024-07-11] MEDS: FAMOTIDINE 20MG TAB PO SCH (08:26)
[2024-07-11] MEDS: metoPROLOL tartRATE 25 MG TAB PO SCH (08:28)
[2024-07-11] MEDS: acetaMINOPHEN 325 MG TAB PO PRN (08:36)
--- NOTE | 2024-07-11 11:50 | NUR ---
DCP:HOME Pt currently lives with his Lisa Villarreal [phone] in their home. Pt denies any insecurities with food, mcfp, and/or utilities. Pt does not have any DME, home health, or provider services. Pt is able to complete ADLs independently. PCP is Dr. Martin Lemus and uses [facility] for any RX needs. At PA pt wants to go home and family can assist with transportation. Addendum: 07/11/24 at 1153 by FERNY OLIVA SS Amended: Links added.
--- NOTE | 2024-07-11 11:57 | PN ---
[facility] PROGRESS NOTE Date of Service: July 11, 2024 Time of Service: 11:57 SUBJECTIVE: This is a case of 74 year old male with past medical history of diabetes mellitus type 2, hypertension, hyperlipidemia, coronary artery disease with cardiac stent x6 two years ago who presented to the ED with complaints of bilateral shoulder pain associated with diaphoresis which started 1 hour prior to ER arrival and was concerned that he might be having a heart attack so he has decided to come to the ED for evaluation .Upon arrival to ER his troponin is 80 and ECG showed sinus bradycardia HR57. Labs Hemoglobin 13, hematocrit 41 platelet count 229. Glucose 197, initial troponin 80 to 73 BNP 49, the rest of the chemistries normal. Right shoulder x-ray result revealed degenerative changes of the acromioclavicular joint with hypertrophy. Left shoulder x-ray result revealed degenerative changes of the acromioclavicular joint with hypertrophy. Chest x-ray result is normal. Admitted for further assessment given his CAD history. 07/11/2024 Patient is seen and examined at the bedside. He states that he feels well and has no complaints. His left-sided shoulder pain has significantly improved. He denies fever, chills, nausea, vomiting, headache, chest pain, pa lpitations, abdominal pain, diarrhea. Vitals heart rate ranging in 50s and blood pressure ranging in 120s to 130s/50s. Labs WBC 7 , hemoglobin decreased from 13.6-12.7, sodium 146, glucose 113. Troponin trend 80-73-70-67. TSH, LFT and magnesium levels are normal. Pending cardiology consult. REVIEW OF SYSTEMS CONSTITUTIONAL: Chronic right-sided shoulder pain, Denies fevers, chills, or night sweats. No unintentional weight loss reported. NEUROLOGICAL: Denies headache, amaurosis fugax, motor weakness, sensory deficit, vertigo/spinning sensation, gait abnormalities, or tremors. ENT: No hearing loss, otalgia, otorrhea, rhinitis, rhinorrhea, hoarseness, or sore throat. CARDIOVASCULAR: Denies any exertional angina, dyspnea on exertion, orthopnea, paroxysmal nocturnal dyspnea, palpitations, life-threatening arrhythmias, claudication. PULMONARY: Denies any shortness of breath, cough, phlegm/sputum, hemoptysis, pleuritic chest pain. SLEEP: Denies morning headaches, daytime somnolence or napping. Denies difficulty falling asleep, staying asleep, waking from sleep. Denies knowledge of snoring. GASTROINTESTINAL: Denies any type of dysphagia to either liquids or solids. Denies nausea, vomiting, pyrosis, early satiety, abdominal pain, diarrhea, constipation, or changes in stool consistency or caliber. Denies coffee-ground emesis, hematemesis, hematochezia, or melanotic stools. GENITOURINARY: Denies frequency, urgency, nocturia, hematuria or incontinence (Storage/Irritative symptoms.) Low urinary stream, straining to void, urinary intermittency or hesitancy, splitting of the voiding stream, terminal dribbling. ENDOCRINOLOGIC: Denies polyuria, polydipsia, polyphagia or heat/cold intolerances. HEMATOLOGIC: Denies thrombophilia/previous clots, or coagulopathy/bleeding disorders. ONCOLOGIC: Denies personal history of malignancy. DERMATOLOGIC: Denies rashes or pruritus. PSYCHIATRIC: Denies any suicidal or homicidal ideation. Denies hallucinations. PHYSICAL EXAM GENERAL APPEARANCE: The patient is awake, alert, and oriented, in no acute cardiopulmonary distress. NEUROLOGICAL: Cranial nerves II-XII grossly intact. Motor is 5/5 in bilateral upper and lower extremities proximal to distal. No sensory deficits. HEENT: Face is symmetric. Pupils are equal and reactive. Extraocular movements are intact. NECK: Supple. No JVD. No thyromegaly. No submental, submandibular, pre- /postauricular, occipital or supraclavicular lymphadenopathy. CHEST: Normal chest expansion. No Telemetry. LUNGS: Absence of any rales, rhonchi or any wheezing. CARDIOVASCULAR: Regular. S1 and S2 normal. No appreciable rubs, murmurs or gallops. ABDOMEN: Soft, nontender, and nondistended. There is no rebound, voluntary guarding, or rigidity. : Deferred. No Choe. EXTREMITIES: Non-edematous and not cyanotic. No clubbing. Good capillary refill. SKIN: No skin breakdown. Vital Signs (last 8hr) Date Time Temp Pulse Resp B/P (MAP) Pulse Ox O2 Delivery O2 Flow Rate FiO2 07/11/24 08:00 98.2 55 19 115/58 98 Room Air 07/11/24 08:00 97 Room Air* 0 21 07/11/24 04:00 97.9 50 18 128/57 98 Room Air LABS: Laboratory: Test 07/11/24 11:08 07/11/24 10:50 07/11/24 05:49 07/10/24 19:28 Range/Units Troponin I High Sensitivity 75 4-75 ng/L Whole Blood Glucose 120 H 70-110 MG/DL White Blood Count 7.0 4.8-10.8 K/uL Red Blood Count 4.23 L 4.50-6.20 MIL/uL Hemoglobin 12.7 L 14.0-18.0 g/dL Hematocrit 37.8 L 42-54 % Mean Corpuscular Volume 89.4 79-99 fL Mean Corpuscular Hemoglobin 30.0 27.0-33.0 pg Mean Corpuscular Hemoglobin Concent 33.6 32.0-36.0 g/dL Red Cell Distribution Width 13.8 11.0-15.5 % Platelet Count 200 130-400 K/uL Mean Platelet Volume 9.6 7.5-10.5 fL Immature Granulocyte % (Auto) 0.3 0-1 % Neutrophils (%) (Auto) 52.0 40.0-77.0 % Lymphocytes (%) (Auto) 32.6 21.0-51.0 % Monocytes (%) (Auto) 7.9 3.0-13.0 % Eosinophils (%) (Auto) 6.5 0.0-8.0 % Basophils (%) (Auto) 0.7 0.0-5.0 % Neutrophils # (Auto) 3.6 1.8-7.7 K/uL Lymphocytes # (Auto) 2.3 1.0-4.8 K/uL Monocytes # (Auto) 0.6 0.1-1.0 K/uL Eosinophils # (Auto) 0.45 0.00-0.70 K/uL Basophils # (Auto) 0.05 0.00-0.20 K/uL Absolute Immature Granulocyte (auto 0.02 0-1 K/uL Nucleated Red Blood Cells 0.0 0.0-0.19 % Erythrocyte Sedimentation Rate 21 H 0-20 MM/HR Sodium Level 146 H 136-145 mmol/L Potassium Level 4.0 3.5-5.1 mmol/L Chloride Level 109 101-111 mmol/L Carbon Dioxide Level 33 H 21-32 mmol/L Blood Urea Nitrogen 18 7-18 mg/dL Creatinine 0.9 0.5-1.3 mg/dL Glomerular Filtration Rate Calc 89 >90 mL/min Random Glucose 113 H 70-105 mg/dL Hemoglobin A1c 8.2 H 4.0-6.0 % Estimated Average Glucose (eAG) 189 H 70-126 mg/dL Total Calcium 8.3 L 8.5-10.1 mg/dL Magnesium Level 2.30 1.80-2.40 mg/dL Total Bilirubin 0.4 0.2-1.0 mg/dL Aspartate Amino Transf (AST/SGOT) 14 10-37 U/L Alanine Aminotransferase (ALT/SGPT) 13 12-78 U/L Alkaline Phosphatase 72 50-136 U/L Total Creatine Kinase 105 21-232 U/L Total Protein 6.0 6.0-8.3 g/dL Albumin 2.8 L 3.5-5.0 g/dL Triglycerides Level 63 30-200 mg/dL Cholesterol Level 58 <200 mg/dL LDL Cholesterol 16 0-99 mg/dL HDL Cholesterol 42 29-71 mg/dL Thyroid Stimulating Hormone (TSH) 1.80 0.36-3.74 uIU/mL B-Type Natriuretic Peptide 49 0-100 pg/mL Current Medications Medications (Trade) Dose Ordered Sig/Svetlana Route PRN Reason Start Time Stop Time Status Last Admin Dose Admin Acetaminophen (TYLenol 325MG TAB) 650 mg Q4H PRN PO MILD PAIN (1-3) 07/10/24 23:30 08/09/24 23:29 07/11/24 08:36 650 MG Acetaminophen (TYLenol 325MG TAB) 650 mg Q6H PRN PO TEMPERATURE GREATER THAN 101.5 07/10/24 23:30 08/09/24 23:29 Aspirin (Aspirin 81mg Ec Tab) 81 mg DAILY PO 07/11/24 09:00 08/10/24 08:59 07/11/24 08:26 81 MG Atorvastatin Calcium (LIPItor 40MG) 40 mg HS PO 07/11/24 21:00 08/10/24 20:59 Clopidogrel Bisulfate (plaVIX 75MG) 75 mg DAILY PO 07/11/24 09:00 08/10/24 08:59 07/11/24 08:26 75 MG Dextrose (D50w) 50 ml AD PRN IV HYPOGLYCEMIA PROTOCOL 07/10/24 23:30 08/09/24 23:29 Famotidine (Pepcid 20mg Tab) 20 mg BID PO 07/11/24 09:00 08/10/24 08:59 07/11/24 08:26 20 MG Glucagon (Glucagon 1mg Kit) 1 mg AD PRN IM HYPOGLYCEMIA PROTOCOL 07/10/24 23:30 08/09/24 23:29 Insulin Human Regular (humuLIN R 100 UNIT/ML 3ML) INSULIN SLIDING SCAL... ACHS SQ 07/11/24 07:30 08/10/24 07:29 Magnesium Sulfate 50 ml @ 0 mls/hr PROTOCOL PRN IV OTHER [SEE ORDER COMMENTS] 07/10/24 23:30 08/09/24 23:29 Metoprolol Tartrate (loprESSOR) 12.5 mg BID PO 07/11/24 09:00 08/10/24 08:59 07/11/24 08:28 12.5 MG Nitroglycerin (Nitrostat) 0.4 mg PROTOCOL PRN SL CHEST PAIN 07/10/24 23:30 08/09/24 23:29 Potassium Chloride 100 ml @ 100 mls/hr AD PRN IV POTASSIUM PROTOCOL 07/10/24 23:30 08/09/24 23:29 Potassium Chloride (K-Dur/Klor-Con 20meq) 20 meq AD PRN PO POTASSIUM PROTOCOL 07/10/24 23:30 08/09/24 23:29 Potassium Chloride (KCl 10% Elixir 20meq/15ml) 20 meq AD PRN PO POTASSIUM PROTOCOL 07/10/24 23:30 08/09/24 23:29 DIAGNOSTICS / RADIOLOGY: [ ] ASSESSMENT: Elevated troponin POA Bilateral shoulder pain POA Coronary artery disease with cardiac stent x6 POA Hypertension POA Hyperlipidemia POA Uncontrolled diabetes POA Morbid obesity POA PLAN: Continue medical telemetry Continue heart healthy and consistent carb diet Elevated troponin POA Troponin trend 80-73-70-67 No active chest pain, diaphoresis, shortness of breath EKG did not show any ischemic changes Will monitor for any new signs/symptoms Bilateral shoulder pain POA Left-sided shoulder pain has resolved, persistent chronic right-sided shoulder pain secondary to fall several years back Continue p.r.n. medications for pain Coronary artery disease with cardiac stent x6 POA Continue aspirin 81 mg, metoprolol 25 mg daily and Plavix 75 mg daily as per home dose Continue atorvastatin 40 mg Hypertension POA Continue home medication losartan hydrochlorothiazide Hyperlipidemia POA Continue home medication atorvastatin 40 mg Uncontrolled diabetes POA Glucose 113 Regular glucometer checks Continue insulin sliding scale AC & HS with hypoglycemia protocol Continue Famotidine 20 mg bid for GI prophylaxis Continue SCDs for DVT prophylaxis, anticoagulation on hold for now in case any further procedures are planned by cardiology Monitor electrolytes and replace them as needed per protocol Continue prn medication for fever,pain,cough ,nausea and vomiting Follow up on Cardiology consult recommendations Home medications are reconciled Repeat labs in a.m. ATTESTATION BY PHYSICIAN I have seen and examined the patient. I reviewed the documentation, medical decision making, and treatment plan as noted by the resident above. I agree with the findings and plan of care. Connor Duggan MD, PRIYANKA MD July 11, 2024 11:57
--- NOTE | 2024-07-11 15:00 | NUR ---
DR. RIVERO MADE AWARE OF CONSULT, PENDING TO SEE PATIENT. DR. CROOK MADE AWARE.
--- NOTE | 2024-07-11 18:11 | CONS ---
CONSULT NOTE: CARDIOLOGY Reason for consult Shoulder pain HPI/story at presentation: This is a pleasant 74-year-old male with extensive past medical history including 6 times in the past, most recently about 2 years ago patient with complaints of shoulder pain. This is not his usual pain associated with angina in the past although, given his history, he was concerned present to the hospital. Troponins were negative, EKG without significant ischemic changes. Cardiology was consulted for further evaluation management Subjective: 07/11/2024 shoulder pain Past medical history: See below Allergies, Meds See chart Review of systems Review of Systems Constitutional: Negative for chills and fever. HENT: Negative for ear discharge and ear pain. Eyes: Negative for photophobia and discharge. Respiratory: Negative for cough, sputum production and stridor. Cardiovascular: Negative for chest pain and palpitations. Gastrointestinal: Negative for diarrhea and vomiting. Genitourinary: Negative for frequency. Musculoskeletal: Negative for myalgias. Skin: Negative for rash. Neurological: Negative for focal weakness and seizures. Endo/Heme/Allergies: Negative for polydipsia. Psychiatric/Behavioral: Negative for hallucinations. Vitals see chart PHYSICAL EXAMINATION GENERAL: The patient is alert and oriented*3 HEENT: Nonicteric sclerae, non traumatic HEART: Regular rate and rhythm with no murmurs LUNGS: Clear to auscultation bilaterally ABDOMEN: No acute issues, non tender GENITAL, RECTAL: deferred SKIN: No rash NEUROLOGIC: NFND EXTREMITIES: No edema ASSESSMENT CHEST PAIN, SHOULDER PAIN Atypical Negative troponins No significant ischemic changes on EKG CORONARY ARTERY DISEASE History of prior stents x 6 DIABETES HYPERTENSION HYPERLIPIDEMIA, OBESITY CORE MEASURES On aspirin statin Plavix losartan metoprolol, 06/2024 OTHER MEDICAL PROBLEMS Reviewed PLAN 07/11/2024 patient with atypical symptoms in the setting of multiple risk factors, history of extensive CAD. Negative for PA at this time. Plan for stress test and echocardiogram to further evaluate chest pain. Further recommendations on the basis of this. Seen and examined 07/11/2024 at around 6 PM ATTESTATION I was involved substantially in the care of this patient Number and complexity of problems addressed: 1 acute illness with systemic features Amount and or complexity of data Review of prior external note(s) from each unique source: 2+ Ordering of each unique test : 0 Review of the result(s) of each unique test: 2+ Assessment requiring an independent historian(s): No Independent interpretation of test performed by another MD/QHCP/appropriate source (not separately reported) : No Discussion of management or test interpretation with external MD/QHCP/appropriate source (not separately reported) : No Risk status (cardiac, billing related): Moderate ROSA RIVERO MD July 11, 2024 18:11
[2024-07-11] MEDS: atorVAStatin 40 MG TABLET PO SCH (20:31)
[2024-07-11] MEDS: LACTULOSE 20 GM/30 ML UDCUP PO ONE (20:31)
[2024-07-12 00:11] VITALS: BP 147/76; PULSE 65; RESP 18; TEMP 97.8
[2024-07-12 04:23] LABS: HEMATOCRIT 39.5 % (42-54); MEAN CORPUSCULAR HEMOGLOBIN 29.6 pg (27.0-33.0); MEAN CORPUSCULAR HGB CONC 33.2 g/dL (32.0-36.0); MEAN CORPUSCULAR VOLUME 89.2 fL (79-99); RED BLOOD CELL COUNT(AUTO) 4.43 MIL/uL (4.50-6.20); RED CELL DISTRIBUTION WIDTH 13.7 % (11.0-15.5); WHITE BLOOD COUNT (AUTO) 9.4 K/uL (4.8-10.8)
[2024-07-12 04:38] LABS: POTASSIUM 4.1 mmol/L (3.5-5.1)
[2024-07-12 04:54] VITALS: BP 120/61; PULSE 52; RESP 18; TEMP 98.2
[2024-07-12 08:00] VITALS: BP 134/64; PULSE 61; RESP 19; TEMP 98; O2SAT 97
[2024-07-12] MEDS ORDERED: REGADENOSON 0.4 MG/5 ML PF SYG IVP ONE (08:27)
[2024-07-12] MEDS: hydroCHLOROthiazide 25 MG TABLET PO SCH (09:00)
[2024-07-12] MEDS: (Dapagliflozin Propanediol (Farxiga) 10 MG) PO SCH (09:00)
[2024-07-12] MEDS ORDERED: NON-FORMULARY MEDICATION 1 EACH (Losartan/Hydrochlorothiazide (Losartan-Hctz 100-12.5 mg T PO SCH (09:00)
[2024-07-12] MEDS: LoSARTan 100 MG TABLET PO SCH (09:00)
--- NOTE | 2024-07-12 11:37 | PN ---
[facility] PROGRESS NOTE Date of Service: July 12, 2024 Time of Service: 11:37 SUBJECTIVE: This is a case of 74 year old male with past medical history of diabetes mellitus type 2, hypertension, hyperlipidemia, coronary artery disease with cardiac stent x6 two years ago who presented to the ED with complaints of bilateral shoulder pain associated with diaphoresis which started 1 hour prior to ER arrival and was concerned that he might be having a heart attack so he has decided to come to the ED for evaluation .Upon arrival to ER his troponin is 80 and ECG showed sinus bradycardia HR57. Labs Hemoglobin 13, hematocrit 41 platelet count 229. Glucose 197, initial troponin 80 to 73 BNP 49, the rest of the chemistries normal. Right shoulder x-ray result revealed degenerative changes of the acromioclavicular joint with hypertrophy. Left shoulder x-ray result revealed degenerative changes of the acromioclavicular joint with hypertrophy. Chest x-ray result is normal. Admitted for further assessment given his CAD history. 07/11/2024 Patient is seen and examined at the bedside. He states that he feels well and has no complaints. His left-sided shoulder pain has significantly improved. He denies fever, chills, nausea, vomiting, headache, chest pain, pa lpitations, abdominal pain, diarrhea. Vitals heart rate ranging in 50s and blood pressure ranging in 120s to 130s/50s. Labs WBC 7 , hemoglobin decreased from 13.6-12.7, sodium 146, glucose 113. Troponin trend 80-73-70-67. TSH, LFT and magnesium levels are normal. Pending cardiology consult. 07/12/2024 Patient is seen and examined at the bedside. He states that he feels well and has no complaints. He denies fever, chills, nausea, vomiting, headache, chest pain, palpitations, abdominal pain, diarrhea. No acute events last night. Vitals blood pressure 120/61, pulse rate 52. Labs hemoglobin improved from 12.7- 13.1, WBC 9.4, BMP unremarkable. Pending 2D echo and Lexiscan stress test. REVIEW OF SYSTEMS CONSTITUTIONAL: Chronic right-sided shoulder pain, Denies fevers, chills, or night sweats. No unintentional weight loss reported. NEUROLOGICAL: Denies headache, amaurosis fugax, motor weakness, sensory deficit, vertigo/spinning sensation, gait abnormalities, or tremors. ENT: No hearing loss, otalgia, otorrhea, rhinitis, rhinorrhea, hoarseness, or sore throat. CARDIOVASCULAR: Denies any exertional angina, dyspnea on exertion, orthopnea, paroxysmal nocturnal dyspnea, palpitations, life-threatening arrhythmias, claudication. PULMONARY: Denies any shortness of breath, cough, phlegm/sputum, hemoptysis, pleuritic chest pain. SLEEP: Denies morning headaches, daytime somnolence or napping. Denies difficulty falling asleep, staying asleep, waking from sleep. Denies knowledge of snoring. GASTROINTESTINAL: Denies any type of dysphagia to either liquids or solids. Denies nausea, vomiting, pyrosis, early satiety, abdominal pain, diarrhea, co nstipation, or changes in stool consistency or caliber. Denies coffee-ground emesis, hematemesis, hematochezia, or melanotic stools. GENITOURINARY: Denies frequency, urgency, nocturia, hematuria or incontinence (Storage/Irritative symptoms.) Low urinary stream, straining to void, urinary intermittency or hesitancy, splitting of the voiding stream, terminal dribbling. ENDOCRINOLOGIC: Denies polyuria, polydipsia, polyphagia or heat/cold intolerances. HEMATOLOGIC: Denies thrombophilia/previous clots, or coagulopathy/bleeding disorders. ONCOLOGIC: Denies personal history of malignancy. DERMATOLOGIC: Denies rashes or pruritus. PSYCHIATRIC: Denies any suicidal or homicidal ideation. Denies hallucinations. PHYSICAL EXAM GENERAL APPEARANCE: The patient is awake, alert, and oriented, in no acute car diopulmonary distress. NEUROLOGICAL: Cranial nerves II-XII grossly intact. Motor is 5/5 in bilateral upper and lower extremities proximal to distal. No sensory deficits. HEENT: Face is symmetric. Pupils are equal and reactive. Extraocular movements are intact. NECK: Supple. No JVD. No thyromegaly. No submental, submandibular, pre- /postauricular, occipital or supraclavicular lymphadenopathy. CHEST: Normal chest expansion. No Telemetry. LUNGS: Absence of any rales, rhonchi or any wheezing. CARDIOVASCULAR: Regular. S1 and S2 normal. No appreciable rubs, murmurs or gallops. ABDOMEN: Soft, nontender, and nondistended. There is no rebound, voluntary guarding, or rigidity. : Deferred. No Choe. EXTREMITIES: Non-edematous and not cyanotic. No clubbing. Good capillary refill. SKIN: No skin breakdown. Vital Signs (last 8hr) Date Time Temp Pulse Resp B/P (MAP) Pulse Ox O2 Delivery O2 Flow Rate FiO2 07/12/24 08:00 98.1 61 19 134/64 97 Room Air 07/12/24 04:54 98.2 52 18 120/61 98 Room Air LABS: Laboratory: Test 07/12/24 11:02 07/12/24 04:10 07/11/24 11:08 07/11/24 05:49 Range/Units Whole Blood Glucose 195 #H 70-110 MG/DL White Blood Count 9.4 # 4.8-10.8 K/uL Red Blood Count 4.43 L 4.50-6.20 MIL/uL Hemoglobin 13.1 L 14.0-18.0 g/dL Hematocrit 39.5 L 42-54 % Mean Corpuscular Volume 89.2 79-99 fL Mean Corpuscular Hemoglobin 29.6 27.0-33.0 pg Mean Corpuscular Hemoglobin Concent 33.2 32.0-36.0 g/dL Red Cell Distribution Width 13.7 11.0-15.5 % Platelet Count 207 130-400 K/uL Mean Platelet Volume 9.6 7.5-10.5 fL Nucleated Red Blood Cells 0.0 0.0-0.19 % Sodium Level 145 136-145 mmol/L Potassium Level 4.1 3.5-5.1 mmol/L Chloride Level 107 101-111 mmol/L Carbon Dioxide Level 32 21-32 mmol/L Blood Urea Nitrogen 20 H 7-18 mg/dL Creatinine 1.0 0.5-1.3 mg/dL Glomerular Filtration Rate Calc 78 >90 mL/min Random Glucose 117 H 70-105 mg/dL Total Calcium 8.6 8.5-10.1 mg/dL Troponin I High Sensitivity 75 4-75 ng/L Immature Granulocyte % (Auto) 0.3 0-1 % Neutrophils (%) (Auto) 52.0 40.0-77.0 % Lymphocytes (%) (Auto) 32.6 21.0-51.0 % Monocytes (%) (Auto) 7.9 3.0-13.0 % Eosinophils (%) (Auto) 6.5 0.0-8.0 % Basophils (%) (Auto) 0.7 0.0-5.0 % Neutrophils # (Auto) 3.6 1.8-7.7 K/uL Lymphocytes # (Auto) 2.3 1.0-4.8 K/uL Monocytes # (Auto) 0.6 0.1-1.0 K/uL Eosinophils # (Auto) 0.45 0.00-0.70 K/uL Basophils # (Auto) 0.05 0.00-0.20 K/uL Absolute Immature Granulocyte (auto 0.02 0-1 K/uL Erythrocyte Sedimentation Rate 21 H 0-20 MM/HR Hemoglobin A1c 8.2 H 4.0-6.0 % Estimated Average Glucose (eAG) 189 H 70-126 mg/dL Magnesium Level 2.30 1.80-2.40 mg/dL Total Bilirubin 0.4 0.2-1.0 mg/dL Aspartate Amino Transf (AST/SGOT) 14 10-37 U/L Alanine Aminotransferase (ALT/SGPT) 13 12-78 U/L Alkaline Phosphatase 72 50-136 U/L Total Creatine Kinase 105 21-232 U/L Total Protein 6.0 6.0-8.3 g/dL Albumin 2.8 L 3.5-5.0 g/dL Triglycerides Level 63 30-200 mg/dL Cholesterol Level 58 <200 mg/dL LDL Cholesterol 16 0-99 mg/dL HDL Cholesterol 42 29-71 mg/dL Thyroid Stimulating Hormone (TSH) 1.80 0.36-3.74 uIU/mL Test 07/10/24 19:28 Range/Units B-Type Natriuretic Peptide 49 0-100 pg/mL Current Medications Medications (Trade) Dose Ordered Sig/Svetlana Route PRN Reason Start Time Stop Time Status Last Admin Dose Admin Acetaminophen (TYLenol 325MG TAB) 650 mg Q4H PRN PO MILD PAIN (1-3) 07/10/24 23:30 08/09/24 23:29 07/11/24 08:36 650 MG Acetaminophen (TYLenol 325MG TAB) 650 mg Q6H PRN PO TEMPERATURE GREATER THAN 101.5 07/10/24 23:30 08/09/24 23:29 Aspirin (Aspirin 81mg Ec Tab) 81 mg DAILY PO 07/11/24 09:00 08/10/24 08:59 07/11/24 08:26 81 MG Atorvastatin Calcium (LIPItor 40MG) 40 mg HS PO 07/11/24 21:00 08/10/24 20:59 07/11/24 20:31 40 MG Clopidogrel Bisulfate (plaVIX 75MG) 75 mg DAILY PO 07/11/24 09:00 08/10/24 08:59 07/11/24 08:26 75 MG Dextrose (D50w) 50 ml AD PRN IV HYPOGLYCEMIA PROTOCOL 07/10/24 23:30 08/09/24 23:29 Famotidine (Pepcid 20mg Tab) 20 mg BID PO 07/11/24 09:00 08/10/24 08:59 07/11/24 20:31 20 MG Glucagon (Glucagon 1mg Kit) 1 mg AD PRN IM HYPOGLYCEMIA PROTOCOL 07/10/24 23:30 08/09/24 23:29 Home Med (Home Medication) (Dapagliflozin Propanediol (Farxiga)... DAILY PO 07/12/24 09:00 08/11/24 08:59 Hydrochlorothiazide (hydroCHLOROthiazide 25MG) 12.5 mg DAILY PO 07/12/24 09:00 08/11/24 08:59 Insulin Human Regular (humuLIN R 100 UNIT/ML 3ML) INSULIN SLIDING SCAL... ACHS SQ 07/11/24 07:30 08/10/24 07:29 Losartan Potassium (CozAAR 100MG TAB) 100 mg DAILY PO 07/12/24 09:00 08/11/24 08:59 Magnesium Sulfate 50 ml @ 0 mls/hr PROTOCOL PRN IV OTHER [SEE ORDER COMMENTS] 07/10/24 23:30 08/09/24 23:29 Metoprolol Tartrate (loprESSOR) 12.5 mg BID PO 07/11/24 09:00 08/10/24 08:59 07/11/24 20:31 12.5 MG Miscellaneous Medication (Losartan/ Hydrochlorothiazide (Losartan-Hctz 100-12.5 mg Tab)) 1 tab DAILY PO 07/12/24 09:00 07/11/24 13:07 DC Nitroglycerin (Nitrostat) 0.4 mg PROTOCOL PRN SL CHEST PAIN 07/10/24 23:30 08/09/24 23:29 Potassium Chloride 100 ml @ 100 mls/hr AD PRN IV POTASSIUM PROTOCOL 07/10/24 23:30 08/09/24 23:29 Potassium Chloride (K-Dur/Klor-Con 20meq) 20 meq AD PRN PO POTASSIUM PROTOCOL 07/10/24 23:30 08/09/24 23:29 Potassium Chloride (KCl 10% Elixir 20meq/15ml) 20 meq AD PRN PO POTASSIUM PROTOCOL 07/10/24 23:30 08/09/24 23:29 DIAGNOSTICS / RADIOLOGY: [ ] ASSESSMENT: Elevated troponin POA Bilateral shoulder pain POA Coronary artery disease with cardiac stent x6 POA Hypertension POA Hyperlipidemia POA Uncontrolled diabetes POA Morbid obesity POA PLAN: Continue medical telemetry Continue heart healthy and consistent carb diet Elevated troponin POA Troponin trend -70- No active chest pain, diaphoresis, shortness of breath EKG did not show any ischemic changes Will monitor for any new signs/symptoms Bilateral shoulder pain POA Left-sided shoulder pain has resolved, persistent chronic right-sided shoulder pain secondary to fall several years back Continue p.r.n. medications for pain Coronary artery disease with cardiac stent x6 POA Continue aspirin 81 mg, metoprolol 25 mg daily and Plavix 75 mg daily as per home dose Continue atorvastatin 40 mg Hypertension POA Continue home medication losartan hydrochlorothiazide Hyperlipidemia POA Continue home medication atorvastatin 40 mg Uncontrolled diabetes POA Glucose 113 Regular glucometer checks Continue insulin sliding scale AC & HS with hypoglycemia protocol Continue Famotidine 20 mg bid for GI prophylaxis Continue SCDs for DVT prophylaxis, anticoagulation on hold for now in case any further procedures are planned by cardiology Monitor electrolytes and replace them as needed per protocol Continue prn medication for fever,pain,cough ,nausea and vomiting Follow up on Cardiology consult recommendations Follow up on 2D echo and Lexiscan stress test results Home medications are reconciled Repeat labs in a.m. ATTESTATION BY PHYSICIAN I have seen and examined the patient. I reviewed the documentation, medical decision making, and treatment plan as noted by the resident above. I agree with the findings and plan of care. Connor Duggan MD, PRIYANKA MD July 12, 2024 11:37
[2024-07-12 12:00] VITALS: BP 119/64; PULSE 57; RESP 19; TEMP 97.7
--- NOTE | 2024-07-12 13:55 | NUR ---
Nutrition consult per Fish allergy Reviewed labs, notes, and medications. Pt on 60 gm cho, elevated BUN 20, Cr WNL, A1C 8.2, low HDL per chart review. Wt via standing scale, 50%PO intake, last BM 07/11/24, no edema, well nourished, no wounds, 100 ml balance 07/11/24 per nursing. A1C for age ~7, appropriate. Recommendations: -Provide 60 gm cho + HH diet + ensure MAX QD w/ am tray -DO NOT PROVIDE FISH per allergy -Monitor PO intake -Encourage PO intake as able -Monitor BM -If no BM >3 days consider stool softener -Monitor electrolytes -Replenish electrolytes per protocol -Monitor wts -Reweigh as able -Order Vit D, vit b-12 labs to rule out deficiencies -Provide b-complex QD if medically feasible -Texture per RN DISEASE MANAGEMENT recs -Recommend Pt to follow up with PCP -Monitor goals of care RD to follow + available for consult per protocol Addendum: 07/12/24 at [address] Amended: Links added.
--- NOTE | 2024-07-12 15:21 | HMCSR ---
APPROVED REPORT Height: 5 ft 5in Weight: 205 lbs TEST INDICATIONS Chest Pain The imaging protocol used to acquire images was Rest Tc-99m/stress Tc-99m 1 day Consent: The procedure was explained and understood by the patient. Informerd consent was witnessed Lolita Aleman RN First, low dose rest was performed then high dose stress. RESTING DATA: The resting ekg shows: NSR Rest SPECT myocardial perfusion imaging was performed in supine position minutes following the intra venous injection of 11 mCi of Tc-99 Sestamibi. Time of rest injection: Date: 07/12/2024 Time of rest imaging: Date: 07/12/2024 PHARMACOLOGIC STRESS: Pharmacologic stress test was performed by injecting regadenoson 0.4 mg IV push followed by the intra venous injection of 30 mCi of Tc-99 Sestamibi. Time of stress injection: Date: 07/12/2024 Time of stress imaging: Date: 07/12/2024 Heart Rate at time of stress injection: 56 bpm. The images were gated to evaluate regional wall motion and calculate left ventricular ejection fracti on. STRESS DETAILS Reason for Termination: Infusion complete Stress Symptoms: No chest pain or symptoms Max HR Achieved: 73 bpm % of APMHR Achieved: 59 Max Blood Pressure: 119/54 mmHg Stress ECG: NSR LV PERFUSION There is evidence of decreased tracer uptake in the inferolateral and inferoseptal jimenez which is bet ter on stress images compared to resting images suggestive of reverse redistribution artifact in this area. No clear-cut evidence of ischemia is present. Ejection fraction of 49%. Abnormal stress test with evidence of previous infarction pattern but no evidence of ischemia. Overall, considered to be a low risk study Conclusion There is evidence of decreased tracer uptake in the inferolateral and inferoseptal jimenez which is bet ter on stress images compared to resting images suggestive of reverse redistribution artifact in this area. No clear-cut evidence of ischemia is present. Ejection fraction of 49%. Abnormal stress test with evidence of previous infarction pattern but no evidence of ischemia. Overall, considered to be a low risk study
--- NOTE | 2024-07-12 15:31 | PN ---
CARDIOLOGY Reason for consult Shoulder pain HPI/story at presentation: This is a pleasant 74-year-old male with extensive past medical history including 6 times in the past, most recently about 2 years ago patient with complaints of shoulder pain. This is not his usual pain associated with angina in the past although, given his history, he was concerned present to the hospital. Troponins were negative, EKG without significant ischemic changes. Cardiology was consulted for further evaluation management Subjective: 07/11/2024 shoulder pain Past medical history: See below Allergies, Meds See chart Review of systems Review of Systems Constitutional: Negative for chills and fever. HENT: Negative for ear discharge and ear pain. Eyes: Negative for photophobia and discharge. Respiratory: Negative for cough, sputum production and stridor. Cardiovascular: Negative for chest pain and palpitations. Gastrointestinal: Negative for diarrhea and vomiting. Genitourinary: Negative for frequency. Musculoskeletal: Negative for myalgias. Skin: Negative for rash. Neurological: Negative for focal weakness and seizures. Endo/Heme/Allergies: Negative for polydipsia. Psychiatric/Behavioral: Negative for hallucinations. Vitals see chart PHYSICAL EXAMINATION GENERAL: The patient is alert and oriented*3 HEENT: Nonicteric sclerae, non traumatic HEART: Regular rate and rhythm with no murmurs LUNGS: Clear to auscultation bilaterally ABDOMEN: No acute issues, non tender GENITAL, RECTAL: deferred SKIN: No rash NEUROLOGIC: NFND EXTREMITIES: No edema ASSESSMENT CHEST PAIN, SHOULDER PAIN Atypical Negative troponins No significant ischemic changes on EKG CORONARY ARTERY DISEASE History of prior stents x 6 DIABETES HYPERTENSION HYPERLIPIDEMIA, OBESITY CORE MEASURES On aspirin statin Plavix losartan metoprolol, 06/2024 OTHER MEDICAL PROBLEMS Reviewed PLAN 07/11/2024 patient with atypical symptoms in the setting of multiple risk factors, history of extensive CAD. Negative for TX at this time. Plan for stress test and echocardiogram to further evaluate chest pain. Further recommendations on the basis of this. Seen and examined 07/11/2024 at around 6 PM 07/12/24 Stress test was negative, no ischemia, echocardiogram pending and can be completed as an outpatient with primary cardiology. Home when ok with primary team Seen and examined 07/12/2024 at around 3 PM. ATTESTATION I was involved substantially in the care of this patient Number and complexity of problems addressed: 1 acute illness with systemic features Amount and or complexity of data Review of prior external note(s) from each unique source: 2+ Ordering of each unique test : 0 Review of the result(s) of each unique test: 2+ Assessment requiring an independent historian(s): No Independent interpretation of test performed by another MD/QHCP/appropriate source (not separately reported) : No Discussion of management or test interpretation with external MD/QNEGRITOP/appropriate source (not separately reported) : No Risk status (cardiac, billing related): Moderate Vitals/Labs Vital Signs Date Time Temp Pulse Resp B/P (MAP) Pulse Ox O2 Delivery O2 Flow Rate FiO2 07/12/24 12:00 97.7 57 19 119/64 95 Room Air 07/12/24 08:00 0 21 Laboratory Tests 07/12/24 04:10 Medications Current Medications Acetaminophen 1,000 mg ONCE ONCE PO Last administered on 07/10/24at 19:28; Start 07/10/24 at 19:30; Stop 07/10/24 at 19:31; Status DC Aspirin 325 mg ONCE ONCE PO Last administered on 07/10/24at 20:05; Start 07/10/24 at 20:00; Stop 07/10/24 at 20:02; Status DC Acetaminophen 650 mg Q6H PRN PO; Start 07/10/24 at 23:30; Stop 08/09/24 at 23:29 Acetaminophen 650 mg Q4H PRN PO Last administered on 07/11/24at 08:36; Start 07/10/24 at 23:30; Stop 08/09/24 at 23:29 Nitroglycerin 0.4 mg PROTOCOL PRN SL; Start 07/10/24 at 23:30; Stop 08/09/24 at 23:29 Famotidine 20 mg BID PO Last administered on 07/11/24at 20:31; Start 07/11/24 at 09:00; Stop 08/10/24 at 08:59 Metoprolol Tartrate 12.5 mg BID PO Last administered on 07/11/24at 20:31; Start 07/11/24 at 09:00; Stop 08/10/24 at 08:59 Clopidogrel Bisulfate 75 mg DAILY PO Last administered on 07/11/24at 08:26; Start 07/11/24 at 09:00; Stop 08/10/24 at 08:59 Aspirin 81 mg DAILY PO Last administered on 07/11/24at 08:26; Start 07/11/24 at 09:00; Stop 08/10/24 at 08:59 Atorvastatin Calcium 40 mg HS PO Last administered on 07/11/24at 20:31; Start 07/11/24 at 21:00; Stop 08/10/24 at 20:59 Insulin Human Regular INSULIN SLIDING SCAL... ACHS SQ; Start 07/11/24 at 07:30; Stop 08/10/24 at 07:29 Dextrose 50 ml AD PRN IV; Start 07/10/24 at 23:30; Stop 08/09/24 at 23:29 Glucagon 1 mg AD PRN IM; Start 07/10/24 at 23:30; Stop 08/09/24 at 23:29 Magnesium Sulfate 50 ml @ 0 mls/hr PROTOCOL PRN IV; Start 07/10/24 at 23:30; Stop 08/09/24 at 23:29 Potassium Chloride 100 ml @ 100 mls/hr AD PRN IV; Start 07/10/24 at 23:30; Stop 08/09/24 at 23:29 Potassium Chloride 20 meq AD PRN PO; Start 07/10/24 at 23:30; Stop 08/09/24 at 23:29 Potassium Chloride 20 meq AD PRN PO; Start 07/10/24 at 23:30; Stop 08/09/24 at 23:29 Home Med (Dapagliflozin Propanediol (Farxiga)... DAILY PO; Start 07/12/24 at 09:00; Stop 08/11/24 at 08:59 Miscellaneous Medication 1 tab DAILY PO; Start 07/12/24 at 09:00; Stop 07/11/24 at 13:07; Status DC Losartan Potassium 100 mg DAILY PO; Start 07/12/24 at 09:00; Stop 08/11/24 at 08:59 Hydrochlorothiazide 12.5 mg DAILY PO; Start 07/12/24 at 09:00; Stop 08/11/24 at 08:59 Lactulose 20 gm ONCE ONCE PO Last administered on 07/11/24at 20:31; Start 07/11/24 at 20:30; Stop 07/11/24 at 20:31; Status DC Regadenoson 0.4 mg STK-MED ONCE IVP; Start 07/12/24 at 08:27; Stop 07/12/24 at 08:27; Status DC ROSA RIVERO MD July 12, 2024 15:31
--- NOTE | 2024-07-12 16:01 | DS ---
Discharge Summary Hospital Course Summary: This is a case of 74 year old male with past medical history of diabetes mellitus type 2, hypertension, hyperlipidemia, coronary artery disease with cardiac stent x6 two years ago who presented to the ED with complaints of bilateral shoulder pain associated with diaphoresis which started 1 hour prior to ER arrival and was concerned that he might be having a heart attack so he has decided to come to the ED for evaluation .Upon arrival to ER his troponin is 80 and ECG showed sinus bradycardia HR57. Labs Hemoglobin 13, hematocrit 41 platelet count 229. Glucose 197, initial troponin 80 to 73 BNP 49, the rest of the chemistries normal. Right shoulder x-ray result revealed degenerative indira nges of the acromioclavicular joint with hypertrophy. Left shoulder x-ray result revealed degenerative changes of the acromioclavicular joint with hypertrophy. Chest x-ray result is normal. ECG reveals sinus rhythm without any ischemic changes. Admitted for further assessment given his CAD history. Home medications were continued. His left-sided shoulder pain has significantly improved over the course of hospital stay. Troponin trend 80-73-70-67. TSH, LFT and magnesium levels are normal. Cardiology consult was obtained, Today the Patient is seen and examined at the bedside. He states that he feels well and has no complaints. He denies fever, chills, nausea, vomiting, headache, chest pain, palpitations, abdominal pain, diarrhea. No acute events last night. Ambulating comfortably without dizziness and tolerating diet without any nausea/vomiting. Vitals blood pressure 120/61, pulse rate 52. Labs hemoglobin improved from 12.7-13.1, WBC 9.4, BMP unremarkable. Lexiscan stress test indicated Abnormal stress test with evidence of previous infarction pattern but no evidence of ischemia. Clearance for discharge is obtained from [facility]. Patient is being discharged today in a stable condition. Advised to follow up with PCP within 2-3 days and advised to follow up with cardiology consult outpatient for further workup and tests like 2D echo. Implementation Specialist(s): Cardiology consult Cleared for discharge From Cardiology standpoint Lexiscan stress test indicated Abnormal stress test with evidence of previous infarction pattern but no evidence of ischemia Follow up outpatient with primary cardiology team outpatient for further workup and tests like 2D echo Procedure(s): SERVICE 532 REASON: jeff jensen to read ORDERING PHYSICIAN: ROSA RIVERO MD PROCEDURE: CARD LISSA - NM LEXISCAN CARDIOLITE APPROVED REPORT Height: 5 ft 5in Weight: 205 lbs TEST INDICATIONS Chest Pain The imaging protocol used to acquire images was Rest Tc-99m/stress Tc-99m 1 day Consent: The procedure was explained and understood by the patient. Informerd consent was witnessed by Sandi Aleman RN First, low dose rest was performed then high dose stress. RESTING DATA: The resting ekg shows: NSR Rest SPECT myocardial perfusion imaging was performed in supine position minutes following the intravenous injection of 11 mCi of Tc-99 Sestamibi. Time of rest injection: Date: 07/12/2024 Time of rest imaging: Date: 07/12/2024 PHARMACOLOGIC STRESS: Pharmacologic stress test was performed by injecting regadenoson 0.4 mg IV push followed by the intravenous injection of 30 mCi of Tc-99 Sestamibi. Time of stress injection: Date: 07/12/2024 Time of stress imaging: Date: 07/12/2024 Heart Rate at time of stress injection: 56 bpm. The images were gated to evaluate regional wall motion and calculate left geremias tricular ejection fraction. STRESS DETAILS Reason for Termination: Infusion complete Stress Symptoms: No chest pain or symptoms Max HR Achieved: 73 bpm % of APMHR Achieved: 59 Max Blood Pressure: 119/54 mmHg Stress ECG: NSR LV PERFUSION There is evidence of decreased tracer uptake in the inferolateral and inferoseptal jimenez which is better on stress images compared to resting images suggestive of reverse redistribution artifact in this area. No clear-cut evidence of ischemia is present. Ejection fraction of 49%. Abnormal stress test with evidence of previous infarction pattern but no evidence of ischemia. Overall, considered to be a low risk study Conclusion There is evidence of decreased tracer uptake in the inferolateral and inferoseptal jimenez which is better on stress images compared to resting images suggestive of reverse redistribution artifact in this area. No clear-cut evidence of ischemia is present. Ejection fraction of 49%. Abnormal stress test with evidence of previous infarction pattern but no evidence of ischemia. Overall, considered to be a low risk study [facility] REPORT#: [id number] SERVICE 15 REASON: shoulder pain ORDERING PHYSICIAN: JILLIAN MCBRIDE INFRASTRUCTURE ADMINISTRATOR PROCEDURE: SHOL 2V RT - SHOULDER COMP 2+VWS RT Exam Type: SHOULDER COMP 2+VWS RT Clinical Information: shoulder pain Comparison: None FINDINGS: The acromioclavicular joint shows hypertrophy, which may impinge upon the rotator cuff tendon. The glenohumeral joint is preserved. Visualized portions of the humerus, the scapula, and the clavicle as well as the upper ribcage are unremarkable. No pulmonary pathology is noted in the visualized portions of the upper lobe. The soft tissues are preserved. There are no other gross abnormalities. IMPRESSION: Degenerative changes of the acromioclavicular joint with hypertrophy. SERVICE 15 REASON: shoulder pain ORDERING PHYSICIAN: JILLIAN MCBRIDE INFRASTRUCTURE ADMINISTRATOR PROCEDURE: SHOL 2V LT - SHOULDER COMP 2+VWS LT Exam Type: SHOULDER COMP 2+VWS LT Clinical Information: shoulder pain Comparison: None FINDINGS: The acromioclavicular joint shows hypertrophy, which may impinge upon the rotator cuff tendon. The glenohumeral joint is preserved. Visualized portions of the humerus, the scapula, and the clavicle as well as the upper ribcage are unremarkable. No pulmonary pathology is noted in the visualized portions of the upper lobe. The soft tissues are preserved. There are no other gross abnormalities. IMPRESSION: Degenerative changes of the acromioclavicular joint with hypertrophy. SERVICE 15 REASON: shoulder pain ORDERING PHYSICIAN: JILLIAN MCBRIDE INFRASTRUCTURE ADMINISTRATOR PROCEDURE: CXR1VW - CHEST 1VW Exam Type: CHEST 1VW Clinical Information: shoulder pain Comparison: None Findings: The lungs are clear of infiltrates. The heart is normal in size. The bony and soft tissue structures of the chest are unremarkable. Impression: Clear lungs. Assessment/Plan: ASSESSMENT: Elevated troponin POA Bilateral shoulder pain POA Coronary artery disease with cardiac stent x6 POA Hypertension POA Hyperlipidemia POA Uncontrolled diabetes POA Morbid obesity POA PLAN: ADMISSION DATE : 07/10/2024 DISCHARGE DATE : 07/12/2024 DISPOSITION : Home CONDITION : Stable Implementation Specialist(s) : Cardiology consult FOLLOW UP APPOINTMENTS : Follow up with PCP within 2-3 days, follow up with cardiology consult outpatient for further workup 1-2 weeks PROCEDURES : Lexiscan stress test IMAGING (s) : Chest x-ray, left and right shoulder x-ray, Lexiscan stress test MICROBIOLOGY : None ACTIVITY : ab berenice HOME MEDICATIONS : Continue NEW MEDICATIONS : None TEACHING : The patient was instructed to present to the nearest Emergency Department or call 911 should their symptoms return or worsen. Discharge Instructions: Follow up with PCP within 2-3 days Follow up with Cardiology team, outpatient for further workup within 1-2 weeks Continue home medications Avoid heavy lifting Monitor for symptoms like chest pain, shortness of breath, dizziness or fainting, new weakness, numbness or swelling in the arms or any new symptoms/persistent symptoms and seek immediate medical attention in such scenario Home Medications: Active Scripts Acetaminophen (Tylenol) 500 Mg Tab, 1 TAB PO Q6HPRN PRN for pain or fever for 5 Days, #20 TAB 0 Refills Prov:TJ CABRERA MD 12/15/23 Reported Medications Tramadol HCl (Conzip) 100 Mg Cpmp.25.75, 50 CAP PO DAILY PRN for MODERATE PAIN (4-6) for 30 Days, #30 CAP 0 Refills 07/11/24 Evolocumab (Repatha Sureclick) 140 Mg/Ml Pen.injctr, 140 MG SQ [id number] ON Tuesdays07/11/24 [Levemir] No Conflict Check, 75 UNITS SQ HS 07/11/24 Latanoprost (Latanoprost) 0.005 % Drops, 1 DROP OU DAILY 07/11/24 Isosorbide Mononitrate (Isosorbide Mononitrate ER) 30 Mg Tab.er.24h, 1 TAB PO BID for 30 Days, #30 TAB 0 Refills 07/11/24 Fluticasone Propionate (Fluticasone Propionate) 50 Mcg/Actuation Superior.susp, 2 SPRAY NS DAILY PRN for NASAL CONGESTION, #16 GM 0 Refills 07/11/24 Metoprolol Tartrate (Metoprolol Tartrate) 25 Mg Tablet, 25 MG PO DAILY, TAB 12/06/23 Losartan/Hydrochlorothiazide (Losartan-Hctz 100-12.5 mg Tab) 100 Mg-12.5 Mg Tablet, 1 TAB PO DAILY for 30 Days, #30 TAB 0 Refills 12/06/23 Ascorbate Calcium (Vitamin C) 500 Mg Tablet, 500 MG PO DAILY, TAB 07/28/23 Flaxseed Oil (Flaxseed Oil) 1,000 Mg Capsule, 1000 MG PO DAILY, CAP 07/28/23 Garlic (Garlic) 1,000 Mg Capsule, 1000 MG PO DAILY, CAP 07/28/23 Zinc Amino Acid Chelate (Zinc) 50 Mg Tablet, 50 MG PO DAILY, TAB 07/28/23 Cyanocobalamin (Vitamin B-12) (Vitamin B12) 5,000 Mcg Tab.rapdis, 5000 MCG PO DAILY, TAB 07/28/23 Cholecalciferol (Vitamin D3) (Vitamin D3) 50 Mcg (2000 Unit) Capsule, 50 MCG PO DAILY, CAP 07/28/23 Semaglutide (Ozempic) 2 Mg/0.75 Ml (8 Mg/3 Ml) Pen.injctr, 2 MG SQ QWEEK ON Mondays07/28/23 Ergocalciferol (Vitamin D2) (Vitamin D2) 1,250 Mcg (21394 Unit) Capsule, 1250 MCG PO QWEEK, CAP 07/28/23 Clopidogrel Bisulfate (Clopidogrel) 75 Mg Tablet, 75 MG PO DAILY, TAB 07/28/23 Ezetimibe/Simvastatin (Ezetimibe-Simvastatin 10-40 mg) 10 Mg-40 Mg Tablet, 1 EACH PO DAILY, TAB 07/28/23 Metformin HCl (Metformin HCl) 1,000 Mg Tablet, 1000 MG PO BIDMEALS, TAB 07/28/23 Dapagliflozin Propanediol (Farxiga) 10 Mg Tablet, 10 MG PO DAILY, TAB 07/28/23 Discontinued Reported Medications Dapagliflozin Propanediol (Farxiga) 10 Mg Tablet, 1 TAB PO DAILY for 30 Days, #30 TAB 0 Refills 12/06/23 Orange-3 Fatty Acids/Fish Oil (Orange 3 Fish Oil Softgel) 684 Mg-1,200 Mg Capsule.dr, 1 EACH PO DAILY, CAP 07/28/23 Evolocumab (Repatha Syringe) 140 Mg/Ml Syringe, 140 MG SQ EVERY 2 WEEKS, SYRINGE 07/28/23 Time spent arranging discharge: 31-60 minutes ATTESTATION BY PHYSICIAN I have seen and examined the patient. I reviewed the documentation, medical decision making, and treatment plan as noted by the resident above. I agree with the findings and plan of care. Connor Duggan MD, PRIYANKA MD July 12, 2024 16:01
[2024-07-12 16:15] VITALS: BP 140/63; PULSE 58; RESP 19; TEMP 98.3
--- NOTE | 2024-07-12 17:35 | NUR ---
DISCHARGED gave patient printed discharge paperwork, educated patient regarding diet, activity, follow up visits, medications, and signs and symptoms to report/return to ER. answered patient and family's questions, both understood.
== END 2024-07-12 17:35 | disposition home or self-care (01) ==
LOC: EDH 18:58 → EDHIP 23:10 → INTOOBSV 23:10 → 4CH 07-11 00:39
PROVIDERS: ADMIT Internal Medicine; ATTEND Internal Medicine
DX: M25.511 Pain in right shoulder (principal); M25.512 Pain in left shoulder; R79.89 Other specified abnormal findings of blood chemistry; I25.10 Atherosclerotic heart disease of native coronary artery without angina pectoris; E11.65 Type 2 diabetes mellitus with hyperglycemia; I10 Essential (primary) hypertension; E66.01 Morbid (severe) obesity due to excess calories; E78.5 Hyperlipidemia, unspecified; R00.1 Bradycardia, unspecified; Z79.899 Other long term (current) drug therapy; Z91.041 Radiographic dye allergy status; Z79.84 Long term (current) use of oral hypoglycemic drugs; Z68.34 Body mass index [BMI] 34.0-34.9, adult
CPT/HCPCS: 99285; 82550 ×2; 83735 ×2; 84484 ×5; 80048 ×2; 83880; 85025 ×2; 36415 ×3; 71045; 73030 ×2; 93005; 83036; 84443; 80061; 80053; 85651; 82948 ×7; 85027; 82607; 93017; 78452; G0378 ×2; J1815; J2785; A9500 ×2